=== PATIENT | male | born 1955 | race Caucasian/White ===

== ENCOUNTER → 2024-12-13 09:51 | Outpatient (REF) | payer OTHER, SELFPAY | LOC: HWRAD 09:51 | PROVIDERS: ATTENDING PHYSICIAN Physician Assistant Medical | DX: R05.3 Chronic cough (principal); R07.89 Other chest pain; R51.9 Headache, unspecified; R09.81 Nasal congestion; R06.02 Shortness of breath | CPT/HCPCS: 70220; 71046 ==